=== PATIENT | female | born 1945 | race Caucasian/White ===

== ENCOUNTER 2018-07-20 11:19 | Emergency (ER) | payer OTHER ==
[~2018-07-20] VITALS: Ht 149.9 cm; Wt 40.8 kg
[~2018-07-20 11:19] MED LIST: CALAN; CARAFATE1 G; HYDROCHLOROTHIA25 MG; KETO10TA2 PO; KLONOPIN0.5 MG/TAB; LEVAQUIN500 MG PO; PRILOSEC20 MG; SYNTROID
[2018-07-21] MEDS ORDERED: MECLIZINE HCL25 MG PO (03:02)
[2018-07-21] MEDS ORDERED: BACTRIM DS TAB1 EACH PO (03:08)
== END 2018-07-21 05:26 | disposition home or self-care (01) ==
LOC: ER 11:19
DX: I16.0 Hypertensive urgency (principal); I10 Essential (primary) hypertension; K29.70 Gastritis, unspecified, without bleeding; R42 Dizziness and giddiness

== ENCOUNTER → 2018-10-12 | Emergency (ER) | payer OTHER ==
[~2018-10-12] VITALS: Ht 149.9 cm; Wt 43.5 kg
[~2018-10-12] MED LIST changes: +BACTRIM DS TAB1 EACH PO; +LOSARTAN POTAS100 MG; +MECLIZINE HCL25 MG PO; +SYNTHROID50 MCG
== END | disposition home or self-care (01) ==
LOC: ER 06:39
DX: K57.90 Diverticulosis of intestine, part unspecified, without perforation or abscess without bleeding (principal); I10 Essential (primary) hypertension

== ENCOUNTER 2020-08-02 18:32 | Emergency (ER) | payer OTHER ==
[~2020-08-02] VITALS: Ht 149.9 cm; Wt 48.5 kg
[2020-08-02] MEDS ORDERED: VERELAN240 MG (18:55)
== END 2020-08-02 23:52 | disposition home or self-care (01) ==
LOC: ER 18:32
DX: R10.32 Left lower quadrant pain (principal); R10.12 Left upper quadrant pain; R31.0 Gross hematuria; Z03.818 Encounter for observation for suspected exposure to other biological agents ruled out

== ENCOUNTER 2021-11-09 23:35 | Emergency (ER) | payer OTHER ==
[~2021-11-09] VITALS: Ht 149.9 cm; Wt 46.3 kg
[~2021-11-09 23:35] MED LIST changes: +VERELAN240 MG
[2021-11-10] MEDS ORDERED: TOPROL XL25 M1 (00:16)
[2021-11-10] MEDS ORDERED: HYDROCHLOROTHIA25 MG (00:17)
[2021-11-10] MEDS ORDERED: PYRIDIUM200 MG PO (03:47)
[2021-11-10] MEDS ORDERED: BACTRIM DS TAB1 EACH PO (03:47)
== END 2021-11-10 03:45 | disposition home or self-care (01) ==
LOC: ER 23:35
DX: R51.9 Headache, unspecified (principal); N39.0 Urinary tract infection, site not specified; I10 Essential (primary) hypertension; Z11.52 Encounter for screening for COVID-19

== ENCOUNTER 2023-08-21 08:41 | Outpatient (CLI) | payer OTHER ==
[~2023-08-21 08:41] MED LIST changes: +PYRIDIUM200 MG PO; +TOPROL XL25 M1
== END 2023-08-21 08:49 | disposition home or self-care (01) ==
LOC: RX STUDY 08:41
PROVIDERS: ATTEND Internal Medicine Gastroenterology
DX: R10.13 Epigastric pain (principal)